=== PATIENT | female | born 1965 | race Caucasian/White ===

== ENCOUNTER 2016-07-14 07:55 | Day surgery (SDC) | payer OTHER ==
[~2016-07-14] VITALS: Ht 170.2 cm; Wt 82.5 kg
[~2016-07-14 07:55] MED LIST: 0.9% Sodium Chloride 1,000 ML IV SCH; BUPR150T8 PO; CALC600T12 PO; CITA40TA13 PO; MULT-1018 PO; Sodium Chloride LOK Flush 10 mL Syringe IV PRN; fentaNYL-PF 50 mCg/mL 2 mL Inj IVPUSH PRN
[2016-07-14 08:22] VITALS: BP 149/87; PULSE 149; RESP 19; O2SAT 97
[2016-07-14] MEDS ORDERED: TURM500C7 PO (08:22)
[2016-07-14] MEDS ORDERED: 0.9% Sodium Chloride 1,000 ML IV ONE (09:18)
[2016-07-14 09:55] VITALS: BP 151/85; PULSE 58; RESP 16; O2SAT 98
[2016-07-14 10:05] VITALS: BP 143/80; PULSE 56; RESP 16; O2SAT 97
[2016-07-14 10:15] VITALS: BP 133/78; PULSE 57; RESP 16; O2SAT 97
--- NOTE | 2016-07-14 10:46 | ENDO ---
[address] [address] ENDOSCOPY PROCEDURE PATIENT: CICI HUYNH : 1965 MR#: [id number] ADMIT: 07/14/2016 JOB ID: [id number] PRIMARY PROVIDER: Char Alexander MD PROCEDURE: Colonoscopy with hot snare polypectomy, cold forceps polypectomy, hot forceps ablation and Endoclip deployment. INDICATIONS: A 51-year-old female who reports for colon cancer screening. EQUIPMENT: [employer]. SEDATION: 6 mg Versed and 125 mcg fentanyl. COMPLICATIONS: None identified. BOWEL PREPARATION: Excellent. PROCEDURE INFORMATION: After the risks and benefits were explained, written and verbal informed consent was obtained. The patient was brought into the endoscopy suite and placed into the left lateral decubitus position. Sedation was achieved using the above-stated medications with the addition of oxygen via nasal cannula. A digital rectal examination was accomplished. No significant pathology appreciated. The scope was introduced into the rectum and advanced under direct visualization to the level of the cecum, as identified by the appendiceal orifice and ileocecal valve. The scope was slowly withdrawn to carefully examine the mucosa for any defects or lesions. Retroflexed views were avoided in the rectum. Multiple direct views were made through the dentate line for exclusion of pathology. The colon was decompressed, the scope removed from the patient who tolerated the procedure well. FINDINGS: Rectal examination did, in fact, disclose moderate internal, external, nonbleeding, nonthrombosed hemorrhoids. There was a small polyp, perhaps 5 mm, in the rectosigmoid region, initially removed with hot snare. There was a small focus of this polyp that remained and I removed it with cold forceps. This induced a moderate amount of ongoing bleeding. The bleeding did not stop even with application of hot forceps. We therefore put a resolution clip in position for hemostasis. No other significant pathology was appreciated throughout. ENDOSCOPIC DIAGNOSES: 1. Rectosigmoid polyp. 2. Hemorrhoids. RECOMMENDATIONS: 1. Await histopathology. 2. Repeat colonoscopy in five years.
== END 2016-07-14 23:59 | disposition home or self-care (01) ==
LOC: END 07:55
PROVIDERS: ATTEND Internal Medicine Gastroenterology
DX: Z12.11 Encounter for screening for malignant neoplasm of colon (principal); D12.8 Benign neoplasm of rectum; K64.4 Residual hemorrhoidal skin tags; K64.8 Other hemorrhoids
CPT/HCPCS: 45385; 99153; G0500; J2250; J3010; J7030